=== PATIENT | male | born 1950 ===

== ENCOUNTER 2017-03-08 10:17 | Emergency (ER) | payer MEDICARE ==
[2017-03-08 10:17] VITALS: BMI 25.0
[2017-03-08 10:29] VITALS: BP 136/73; PULSE 84; RESP 16; TEMP 97.6; O2SAT 98
--- NOTE | 2017-03-08 10:51 | ED PDOC ---
Upper Extremity Pain/Injury Time Seen by Provider: 03/08/17 10:33 Chief Complaint (Nursing): Upper Extremity Problem/Injury Chief Complaint (Provider): Left Shoulder Pain History Per: Patient History/Exam Limitations: no limitations Onset/Duration Of Symptoms: Days (6) Current Symptoms Are (Timing): Still Present Additional Complaint(s): Son Braga is a 66 year old male that presents to the ED with a chief complaint of left shoulder pain that he has been experiencing for the past 6 days. Patient reports that his pain began 6 days ago after he slept awkwardly on his stomach and left shoulder. He states that he has pain with movement but denies any weakness, chest pain, shortness of breath. Denies other trauma. Past Medical History Reviewed: Historical Data, Nursing Documentation, Vital Signs Vital Signs: Last Vital Signs Temp 97.6 F 03/08/17 10:28 Pulse 84 03/08/17 10:28 Resp 16 03/08/17 10:28 BP 136/73 03/08/17 10:28 Pulse Ox 98 03/08/17 10:28 - Medical History PMH: Deep Vein Thrombosis (left leg) Denies: Chronic Kidney Disease - Family History Family History: States: Unknown Family Hx - Home Medications Home Medications: Ambulatory Orders Medication Instructions Recorded Docusate [Colace] 100 mg PO Q8 06/21/15 Hydrocodone/Acetaminophen [Vicodin 1 mg PO Q6 PRN 06/21/15 5-300 mg Tablet] - Allergies Allergies/Adverse Reactions: Allergies Allergy/AdvReac Type Severity Reaction Status Date / Time No Known Allergies Allergy Verified 12/29/14 08:24 Review of Systems ROS Statement: Except As Marked, All Systems Reviewed And Found Negative Constitutional: Negative for: Fever, Chills, Weakness Cardiovascular: Negative for: Chest Pain, Palpitations Respiratory: Negative for: Cough, Shortness of Breath, SOB with Exertion, Wheezing Gastrointestinal: Negative for: Nausea, Vomiting, Abdominal Pain, Diarrhea, Constipation Genitourinary Male: Negative for: Dysuria, Frequency Musculoskeletal: Positive for: Shoulder Pain (left). Negative for: Neck Pain Neurological: Negative for: Weakness, Numbness, Incoordination, Change in Speech , Headache Physical Exam - Reviewed Nursing Documentation Reviewed: Yes Vital Signs Reviewed: Yes - Physical Exam Appears: Positive for: Well, Non-toxic, No Acute Distress Head Exam: Positive for: ATRAUMATIC, NORMOCEPHALIC Skin: Positive for: Normal Color, Warm Eye Exam: Positive for: Normal appearance, EOMI, PERRL Neck: Positive for: Normal, Supple Cardiovascular/Chest: Positive for: Regular Rate, Rhythm. Negative for: Murmur Respiratory: Positive for: Normal Breath Sounds. Negative for: Wheezing Pulses-Radial (L): 2+ Pulses-Radial (R): 2+ Gastrointestinal/Abdominal: Positive for: Soft. Negative for: Tenderness Back: Positive for: Normal Inspection Extremity: Negative for: Normal ROM (Left shoulder has decreased active ROM secondary to pain, normal passive ROM. Right shoulder normal.), Deformity Neurologic/Psych: Positive for: Alert, Oriented. Negative for: Motor/Sensory Deficits - ECG O2 Sat by Pulse Oximetry: 98 (RA) Pulse Ox Interpretation: Normal Medical Decision Making Medical Decision Making: Impression: Left Shoulder Pain Plan: * X-Ray Left Shoulder * EKG * Toradol 20 mg IV * Reevaluation X-Ray Left Shoulder Glenohumeral and acromioclavicular joints exhibit limited degenerative sclerosis. No subluxation or dislocation. SOFT TISSUES: Normal. OTHER FINDINGS: None. IMPRESSION: Limited degenerative changes seen at the acromioclavicular and glenohumeral joints without fracture, subluxation or dislocation. 11:38AM EKG shows NSR at 86bpm with t wave inversions in II, III, avf, seen in prior ekg and new t wave inversions in v4-v6 when compared to ekg in 04/2015. Stress test from 05/2015 is WNL. Patient was made aware of ekg changes and will follow- up with PMD. He continues to deny chest pain and shortness of breath. Shoulder pain is musculoskeletal in nature and worse with movement and was started after sleeping on shoulder awkwardly. Reports pain relief after toradol and now has full ROM at L shoulder. Reports that he will follow-up with PMD Dr. Gwyn Richard Attestation: Documented by Shakira Reynolds, acting as a scribe for Gisele Reed MD. Provider Scribe Attestation: All medical record entries made by the Scribe were at my direction and personally dictated by me. I have reviewed the chart and agree that the record accurately reflects my personal performance of the history, physical exam, medical decision making, and the department course for this patient. I have also personally directed, reviewed, and agree with the discharge instructions and disposition. Disposition - Clinical Impression Clinical Impression: Shoulder pain - Disposition Disposition: Routine/Home Disposition Time: 11:40 Condition: GOOD Additional Instructions: Follow-up with PMD within 2 days. Return to ED if condition worsens. Follow- up with your PMD for ekg changes. Return immediately with any chest pain or shortness of breath or any worsening symptoms. Instructions: Osteoarthritis (ED) Forms: [employer] ([place])
--- NOTE | 2017-03-08 11:13 | RAD ---
PROCEDURE: Radiographs of the Left Shoulder HISTORY: L shoulder pain COMPARISON: No prior. FINDINGS: BONES: No acute fracture or destructive bony lesion identified. JOINTS: Glenohumeral and acromioclavicular joints exhibit limited degenerative sclerosis. No subluxation or dislocation. SOFT TISSUES: Normal. OTHER FINDINGS: None. IMPRESSION: Limited degenerative changes seen at the acromioclavicular and glenohumeral joints without fracture, subluxation or dislocation.
--- NOTE | 2017-03-10 12:34 | CARD ---
APPROVED REPORT EKG Measurement Heart [id number] <Conclusion> Normal sinus rhythm Possible Left atrial enlargement ST & T wave abnormality, consider inferolateral ischemia Abnormal ECG
== END 2017-03-08 12:13 | disposition home or self-care (01) ==
LOC: H.ER 10:17
DX: M25.512 Pain in left shoulder (principal); Z86.718 Personal history of other venous thrombosis and embolism
CPT/HCPCS: 73030; 93005; 96372; 99282; J1885